=== PATIENT | male | born 1970 | race Caucasian/White ===

== ENCOUNTER 2018-10-22 18:26 | Emergency (ER) | payer MEDICAID ==
[2018-10-22] MEDS: DEXAMETHASONE 10 MG/ML 1 ML INJ IM (20:51)
[2018-10-22] MEDS: KETOROLAC 30 MG INJ IM (20:51)
== END 2018-10-22 22:18 | disposition home or self-care (01) ==
LOC: FTE 18:26
DX: M25.511 Pain in right shoulder (principal)
CPT/HCPCS: 73000; 73030-RT; 96372; 99284-25